=== PATIENT | female | born 1965 | race Caucasian/White ===

== ENCOUNTER 2017-01-07 12:56 | Observation (INO) | payer BC ==
[2017-01-07] MEDS ORDERED: ASPIRIN 81 MG TABLET, CHEWABLE PO ONE (13:31)
--- NOTE | 2017-01-07 13:35 | ER Document Report ---
ED Medical Screen (RME) - General Chief Complaint: Chest Pain Stated Complaint: CHEST PAIN, SHORTNESS OF BREATH Time Seen by Provider: 01/07/17 13:28 Mode of Arrival: Ambulatory Information source: Patient Notes: pt presents with c/o cp midsternal with pain straight across her shoulders. Also reports n/v/d, jaw pain. Sx started Thursday, better Thursday, returned today. Hx of HTN, High chol., + smoker. TRAVEL OUTSIDE OF THE [place] IN LAST 30 DAYS: No - Related Data Allergies/Adverse Reactions: No Known Allergies Allergy (Verified 07/14/14 06:51) Past Medical History - Past Medical History Cardiac Medical History: Denies: Hx Coronary Artery Disease, Hx Heart Attack, Hx Hypertension Pulmonary Medical History: Denies: Hx Asthma, Hx Bronchitis, Hx COPD, Hx Pneumonia Neurological Medical History: Denies: Hx Cerebrovascular Accident, Hx Seizures Renal/ Medical History: Denies: Hx Peritoneal Dialysis Musculoskeltal Medical History: Denies Hx Arthritis Past Surgical History: Denies: Hx Hysterectomy - Immunizations Hx Diphtheria, Pertussis, Tetanus Vaccination: No Physical Exam - Vital signs Vitals: Temp Pulse Resp BP Pulse Ox 98.0 F 98 20 113/73 99 01/07/17 13:14 01/07/17 13:14 01/07/17 13:14 01/07/17 13:14 01/07/17 13:14 Course - Vital Signs Vital signs: Temp Pulse Resp BP Pulse Ox 98.0 F 98 20 113/73 99 01/07/17 13:14 01/07/17 13:14 01/07/17 13:14 01/07/17 13:14 01/07/17 13:14
--- NOTE | 2017-01-07 13:43 | EKG REPORT ---
SEVERITY:- BORDERLINE ECG - SINUS RHYTHM PROBABLE LEFT ATRIAL ABNORMALITY : Confirmed by: Efrain Najera 07-Jan-2017 13:42:41
[2017-01-07 13:57] LABS: ABSOLUTE BASOPHILS # (AUTO) 0.1 10^3/uL (0.0-0.2); ABSOLUTE EOSINOPHILS # (AUTO) 0.2 10^3/uL (0.0-0.6); ABSOLUTE LYMPHOCYTES (AUTO) 3.2 10^3/uL (0.5-4.7); ABSOLUTE MONOCYTES (AUTO) 0.9 10^3/uL (0.1-1.4); ABSOLUTE NEUT (AUTO) 7.4 10^3/uL (1.7-8.2); BASOPHILS % (AUTO) 0.8 % (0-2); EOSINOPHILS % (AUTO) 1.5 % (0-6); HEMATOCRIT 45.7 % (36.0-47.0); HEMOGLOBIN 15.7 g/dL (12.0-15.5); HGB HCT DIFFERENCE 1.4; LYMPHOCYTES % (AUTO) 26.9 % (13-45); MEAN CORPUSCULAR HGB CONC 34.4 g/dL (32.0-36.0); MEAN CORPUSCULAR VOLUME 87 fl (80-97); MONOCYTES % (AUTO) 7.3 % (3-13); RED BLOOD COUNT 5.24 10^6/uL (3.72-5.28); RED CELL DISTRIBUTION WIDTH 13.3 % (11.5-14.0); SEGMENTED NEUTROPHILS % (AUTO) 63.5 % (42-78); WHITE BLOOD COUNT 11.7 10^3/uL (4.0-10.5)
[2017-01-07 14:02] LABS: PROTHROMBIN TIME 12.1 SEC (11.4-15.4)
--- NOTE | 2017-01-07 14:14 | ER Document Report ---
ED General - General Chief Complaint: Chest Pain Stated Complaint: CHEST PAIN, SHORTNESS OF BREATH Time Seen by Provider: 01/07/17 13:28 Mode of Arrival: Ambulatory Information source: Patient Notes: 51-year-old female history of hypertension hypercholesterolemia smoker no previous cardiac history presents with complaints of chest pain. Patient notes it is a pressure sensation midsternal lasting 5-10 minutes on exertion initially started on Thursday resolved on Thursday and return again. Patient notes pain worsens when she walks. Denies any previous similar episodes TRAVEL OUTSIDE OF THE [place] IN LAST 30 DAYS: No - HPI Onset: Other Onset/Duration: Intermittent Quality of pain: Burning, Pressure Severity: Mild Pain Level: 1 Associated symptoms: Chest pain, Nausea, Vomiting Exacerbated by: Walking Relieved by: Denies Similar symptoms previously: No Recently seen / treated by doctor: No - Related Data Allergies/Adverse Reactions: No Known Allergies Allergy (Verified 07/14/14 06:51) Past Medical History - General Information source: Patient - Social History Smoking Status: Current Every Day Smoker Cigarette use (# per day): Yes Chew tobacco use (# tins/day): No Smoking Education Provided: No Family History: CAD Patient has suicidal ideation: No Patient has homicidal ideation: No - Past Medical History Cardiac Medical History: Denies: Hx Coronary Artery Disease, Hx Heart Attack, Hx Hypertension Pulmonary Medical History: Denies: Hx Asthma, Hx Bronchitis, Hx COPD, Hx Pneumonia Neurological Medical History: Denies: Hx Cerebrovascular Accident, Hx Seizures Renal/ Medical History: Denies: Hx Peritoneal Dialysis Musculoskeltal Medical History: Denies Hx Arthritis Past Surgical History: Denies: Hx Hysterectomy - Immunizations Hx Diphtheria, Pertussis, Tetanus Vaccination: No Review of Systems - Review of Systems Notes: PHYSICAL EXAMINATION: GENERAL: Well-appearing, well-nourished and in no acute distress. HEAD: Atraumatic, normocephalic. EYES: Pupils equal round and reactive to light, extraocular movements intact, conjunctiva are normal. ENT: Nares patent, oropharynx clear without exudates. Moist mucous membranes. NECK: Normal range of motion, supple without lymphadenopathy LUNGS: Breath sounds clear to auscultation bilaterally and equal. No wheezes rales or rhonchi. HEART: Regular rate and rhythm without murmurs ABDOMEN: Soft, nontender, nondistended abdomen. No guarding, no rebound. No masses appreciated. Female : deferred Musculoskeletal: Normal range of motion, no pitting or edema. No cyanosis. NEUROLOGICAL: Cranial nerves grossly intact. Normal speech, normal gait. Normal sensory, motor exams PSYCH: Normal mood, normal affect. SKIN: Warm, Dry, normal turgor, no rashes or lesions noted. Physical Exam - Vital signs Vitals: Temp Pulse Resp BP Pulse Ox 98.0 F 98 20 113/73 99 01/07/17 13:14 01/07/17 13:14 01/07/17 13:14 01/07/17 13:14 01/07/17 13:14 Course - Re-evaluation Re-evalutation: 01/07/17 15:32 first set of enzymes are negative, pt is stable at this time. i will admit for acs rules out 01/07/17 15:36 - Vital Signs Vital signs: Temp Pulse Resp BP Pulse Ox 98.0 F 98 20 113/73 99 01/07/17 13:14 01/07/17 13:14 01/07/17 13:14 01/07/17 13:14 01/07/17 13:14 - Laboratory Result Diagrams: 01/07/17 13:40 01/07/17 13:40 Laboratory results interpreted by me: 01/07/17 01/07/17 13:40 13:40 WBC 11.7 H Hgb 15.7 H Sodium 135.0 L Chloride 93 L Carbon Dioxide 31 H Glucose 143 H Direct Bilirubin 0.5 H - Diagnostic Test Radiology reviewed: Image reviewed, Reports reviewed - EKG Interpretation by Ma EKG shows normal: Sinus rhythm, [place], Intervals, QRS Complexes Discharge - Discharge Clinical Impression: Chest pain Qualifiers: Chest pain type: unspecified Qualified Code(s): R07.9 - Chest pain, unspecified Condition: Stable Disposition: ADMITTED OBSERVATION Admitting Provider: Hospitalist Unit Admitted: Telemetry
[2017-01-07 14:17] LABS: ALANINE AMINOTRANSFERASE 51 U/L (9-52); ALBUMIN 4.4 g/dL (3.5-5.0); ALKALINE PHOSPHATASE 101 U/L (38-126); ANION GAP 11 (5-19); ASPARTATE AMINO TRANSFERASE 31 U/L (14-36); BILIRUBIN,DIRECT 0.5 mg/dL (0.0-0.4); BILIRUBIN,TOTAL 0.7 mg/dL (0.2-1.3); BLOOD UREA NITROGEN 15 mg/dL (7-20); CALCIUM 9.8 mg/dL (8.4-10.2); CARBON DIOXIDE 31 mmol/L (22-30); CHLORIDE 93 mmol/L (98-107); CREATINE KINASE 65 U/L (30-135); CREATININE RESULT 0.74 mg/dL (0.52-1.25); GLUCOSE 143 mg/dL (75-110); POTASSIUM 4.2 mmol/L (3.6-5.0); TOTAL PROTEIN 7.4 g/dL (6.3-8.2)
[2017-01-07 14:27] LABS: CREATINE KINASE MB 0.33 ng/mL (<4.55)
[2017-01-07 14:32] LABS: TROPONIN I < 0.012 ng/mL
[2017-01-07] MEDS ORDERED: MORPHINE SULFATE 10 MG/ML INJ IV PRN (16:42)
[2017-01-07] MEDS ORDERED: DIAZEPAM 5 MG TABLET PO PRN ×2 (16:42→16:51)
[2017-01-07] MEDS ORDERED: ONDANSETRON HCL INJ/PF 4 MG/2 ML SDV IV PRN (16:42)
[2017-01-07] MEDS ORDERED: NITROGLYCERIN 0.4 MG/TAB 25 TAB/BOTTLE SL PRN (16:42)
[2017-01-07] MEDS ORDERED: TEMAZEPAM 15 MG CAPSULE PO PRN (16:42)
--- NOTE | 2017-01-07 17:02 | PDOC H&P ---
History of Present Illness Admission Date/PCP: 01/07/17 16:10 History of Present Illness: JOURDAN ERIC is a 51 year old female with a history of hypertension, hyperlipidemia, GERD, diabetes mellitus type II, tobaccoism presents to the emergency department with complaints of chest pain of approximately 3 days in duration. Patient reports that her chest pain was sharp and substernal and lasted for approximately 20 minutes and radiated up into her jaw and her right ear. There was seen with nausea and vomiting. She of the sub-Thursday as well as on Thursday particularly in the evening. Patient reports that her chest pain is worse with exertion and lasts for approximately 20 minutes and will resolve upon resting. She reports associated shortness of breath and dyspnea on exertion. She does report occasional abdominal distention and occasional mild lower extremity swelling but denies any PND or orthopnea. Patient does report significant postnasal drip as well as a cough on laying down. Patient is referred to hospital service for evaluation of her chest pain. Past Medical History Past Medical History: Hypertension, hyperlipidemia, GERD, diabetes mellitus type II Cardiac Medical History: Denies: Coronary Artery Disease, Myocardial Infarction, Hypertension Pulmonary Medical History: Denies: Asthma, Bronchitis, Chronic Obstructive Pulmonary Disease (COPD), Pneumonia Neurological Medical History: Denies: Seizures Musculoskeltal Medical History: Denies: Arthritis Hematology: Denies: Anemia Past Surgical History Past Surgical History: Reports: Cholecystectomy, Tonsillectomy Denies: Hysterectomy Social History Smoking Status: Current Every Day Smoker Cigarettes Packs Per Day: 1 Number of Years Smokin Frequency of Alcohol Use: None Hx Recreational Drug Use: No Hx Prescription Drug Abuse: No - Advance Directive Resuscitation Status: Full Code Surrogate healthcare decision maker:: Cindy Macario, Family History Family History: CAD, CVA Parental Family History Reviewed: Yes Children Family History Reviewed: NA Sibling(s) Family History Reviewed.: NA Medication/Allergy Home Medications: Atorvastatin Calcium [Lipitor 40 mg Tablet] 40 mg PO QHS 01/07/17 Gabapentin [Neurontin 300 mg Capsule] 300 mg PO Q12 01/07/17 Lisinopril/Hydrochlorothiazide [Zestoretic 20-25 mg Tablet] 1 tab PO QHS Melatonin/Pyridoxine HCl (B6) [Melatonin 10 mg Tablet] 10 mg PO QHS 01/07/17 Metformin HCl [Metformin HCl ER] 500 mg PO BID 01/07/17 Allergies/Adverse Reactions: No Known Allergies Allergy (Verified 07/14/14 06:51) Review of Systems Constitutional: PRESENT: fatigue. ABSENT: chills, fever(s), headache(s), weakness, weight gain, weight loss Eyes: ABSENT: visual disturbances Ears: ABSENT: hearing changes Cardiovascular: PRESENT: as per HPI, chest pain, dyspnea on exertion, edema. ABSENT: orthropnea, palpitations Respiratory: ABSENT: cough, hemoptysis Gastrointestinal: PRESENT: heartburn. ABSENT: abdominal pain, constipation, diarrhea, hematemesis, hematochezia, melena, nausea, vomiting Genitourinary: ABSENT: dysuria, hematuria Musculoskeletal: ABSENT: joint swelling Integumentary: ABSENT: rash, wounds Neurological: ABSENT: abnormal gait, abnormal speech, confusion, dizziness, focal weakness, syncope Psychiatric: ABSENT: anxiety, depression, homidical ideation, suicidal ideation Endocrine: ABSENT: cold intolerance, heat intolerance, polydipsia, polyuria Hematologic/Lymphatic: ABSENT: easy bleeding, easy bruising Physical Exam Vital Signs: Temp Pulse Resp BP Pulse Ox 98.0 F 98 11 L 113/73 98 01/07/17 13:14 01/07/17 13:14 01/07/17 16:00 01/07/17 13:14 01/07/17 16:00 General appearance: PRESENT: no acute distress, well-developed, well-nourished Head exam: PRESENT: atraumatic, normocephalic Eye exam: PRESENT: conjunctiva pink, EOMI, PERRLA. ABSENT: scleral icterus Ear exam: PRESENT: normal external ear exam Mouth exam: PRESENT: moist, tongue midline Neck exam: ABSENT: JVD, lymphadenopathy, thyromegaly, tracheal deviation Respiratory exam: PRESENT: clear to auscultation trudy, symmetrical, unlabored. ABSENT: rales, rhonchi, tachypnea, wheezes Cardiovascular exam: PRESENT: RRR, +S1, +S2. ABSENT: clicks, diastolic murmur, gallop, rubs, systolic murmur Pulses: PRESENT: normal dorsalis pedis pul Vascular exam: PRESENT: normal capillary refill GI/Abdominal exam: PRESENT: normal bowel sounds, soft. ABSENT: distended, guarding, mass, Gottlieb's sign, organolmegaly, rebound, tenderness Rectal exam: PRESENT: deferred Extremities exam: PRESENT: full ROM. ABSENT: calf tenderness, clubbing, pedal edema Neurological exam: PRESENT: alert, awake, oriented to person, oriented to place , oriented to time, oriented to situation, CN II-XII grossly intact. ABSENT: motor sensory deficit Psychiatric exam: PRESENT: appropriate affect, normal mood. ABSENT: homicidal ideation, suicidal ideation Skin exam: PRESENT: dry, intact, warm. ABSENT: cyanosis, rash Results Impressions: Chest X-Ray 01/07/17 00:00 IMPRESSION: NO SIGNIFICANT RADIOGRAPHIC FINDING IN THE CHEST. Assessment & Plan - Diagnosis (1) Chest pain Qualifiers: Chest pain type: unspecified Qualified Code(s): R07.9 - Chest pain, unspecified Is this a current diagnosis for this admission?: YesPlan: Place patient on observation for chest pain protocol. Obtain serial cardiac enzymes, morning lipid panel, and hemoglobin A1c. Place patient on nitroglycerin, metoprolol, lisinopril, aspirin, Lipitor, morphine, Lovenox. Will monitor on telemetry. Patient has multiple risk factors and will place for stress test in the morning. 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 She is offered nicotine replacement therapy. Stop smoking! (7) GERD (gastroesophageal reflux disease) Qualifiers: Esophagitis presence: esophagitis presence not specified Qualified Code(s): K21.9 - Gastro-esophageal reflux disease without esophagitis Is this a current diagnosis for this admission?: YesPlan: Place patient on Prevacid twice a day (8) Allergic rhinitis Qualifiers: Allergic rhinitis trigger: unspecified Allergic rhinitis seasonality: unspecified seasonality Qualified Code(s): J30.9 - Allergic rhinitis, unspecified Is this a current diagnosis for this admission?: YesPlan: Initiated patient on Claritin, Singulair, and Flonase - Time Time Spent: 50 to 70 Minutes Medications reviewed and adjusted accordingly: Yes Anticipated discharge: Home Within: within 24 hours - Inpatient Certification Based on my medical assessment, after consideration of the patient's comorbidities, presenting symptoms, or acuity I expect that the services needed warrant INPATIENT care.: No I certify that my determination is in accordance with my understanding of Medicare's requirements for reasonable and necessary INPATIENT services [42 CFR 412.3e].: No Medical Necessity: Need For Continuous Telemetry Monitoring 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
[2017-01-07] MEDS: LANSOPRAZOLE 30 MG TAB.RAP.DR PO SCH (17:03)
[2017-01-07] MEDS: DOCUSATE SODIUM 100 MG CAPSULE PO SCH (17:04)
[2017-01-07 18:24] LABS: TROPONIN I < 0.012 ng/mL
[2017-01-07] MEDS ORDERED: (PENDING PHARMACY ID) (Melatonin/Pyridoxine Hcl (B6) [Melatonin 10 Mg Tablet] 10 MG) PO SCH (22:00)
[2017-01-07] MEDS ORDERED: ATORVASTATIN CALCIUM 40 MG TABLET PO SCH (22:00)
[2017-01-07] MEDS ORDERED: HYDROCHLOROTHIAZIDE 25 MG TABLET PO SCH (22:00)
[2017-01-07] MEDS ORDERED: LISINOPRIL 10 MG TABLET PO SCH (22:00)
[2017-01-07] MEDS ORDERED: MONTELUKAST SODIUM 10 MG TABLET PO SCH (22:00)
[2017-01-07] MEDS ORDERED: (PENDING PHARMACY ID) (Lisinopril/Hydrochlorothiazide [Zestoretic 20-25 Mg Tablet] 1 TAB) PO SCH (22:00)
[2017-01-07] MEDS ORDERED: LORATADINE 10 MG TABLET PO SCH (22:00)
[2017-01-07] MEDS: GABAPENTIN 300 MG CAPSULE PO SCH (23:19)
[2017-01-07] MEDS: ENOXAPARIN SODIUM INJ 80 MG/0.8 ML DISP.SYRIN SUBCUT SCH (23:21)
[2017-01-07] MEDS: FLUTICASONE NASAL SPRAY 50 MCG/SPRY 120 SPRAY/16 GM NASL SCH (23:33)
[2017-01-08 00:23] LABS: CREATINE KINASE MB 0.26 ng/mL (<4.55)
[2017-01-08 00:28] LABS: TROPONIN I < 0.012 ng/mL
[2017-01-08] MEDS: LANSOPRAZOLE 30 MG TAB.RAP.DR PO SCH (05:05)
[2017-01-08 06:43] LABS: CHOLESTEROL 127.17 mg/dL (0-200); Direct HDL 22 mg/dL (>40); TRIGLYCERIDES 227 mg/dL (<150)
[2017-01-08 06:54] LABS: DIRECT LDL 56 mg/dL (<100)
[2017-01-08 06:55] LABS: CREATINE KINASE MB 0.24 ng/mL (<4.55)
[2017-01-08 06:58] LABS: TROPONIN I < 0.012 ng/mL
[2017-01-08 06:59] LABS: VLDL CHOLESTEROL 45.4 mg/dL (10-31)
[2017-01-08] MEDS ORDERED: ASPIRIN 325 MG TABLET, ENT COATED PO SCH (10:00)
[2017-01-08] MEDS ORDERED: REGADENOSON INJ 0.4 MG/5 ML DISP.SYRIN IV ONE (11:39)
[2017-01-08] MEDS: FLUTICASONE NASAL SPRAY 50 MCG/SPRY 120 SPRAY/16 GM NASL SCH (11:42)
[2017-01-08] MEDS: DOCUSATE SODIUM 100 MG CAPSULE PO SCH (11:42)
[2017-01-08] MEDS: GABAPENTIN 300 MG CAPSULE PO SCH (11:42)
[2017-01-08] MEDS: ENOXAPARIN SODIUM INJ 80 MG/0.8 ML DISP.SYRIN SUBCUT SCH (11:43)
[2017-01-08 14:23] VITALS: BP 113/61
--- NOTE | 2017-01-08 15:32 | PDOC DISCHARGE SUMMARY ---
General - Admit/Disc Date/PCP Admission Date/Primary Care Provider: 01/07/17 16:42 Discharge Date: 01/08/17 - Discharge Diagnosis (1) Chest pain Is this a current diagnosis for this admission?: Yes (2) Positive cardiac stress test Is this a current diagnosis for this admission?: Yes (3) Hypertension Is this a current diagnosis for this admission?: Yes (4) Hyperlipidemia Is this a current diagnosis for this admission?: Yes (5) Diabetes mellitus, type II Is this a current diagnosis for this admission?: Yes (6) Tobacco abuse Is this a current diagnosis for this admission?: Yes (7) GERD (gastroesophageal reflux disease) Is this a current diagnosis for this admission?: Yes (8) Allergic rhinitis Is this a current diagnosis for this admission?: Yes - Additional Information Resuscitation Status: Full Code Discharge Diet: Cardiac, Diabetic Discharge Activity: Activity As Tolerated, Slowly Increase Activity Home Medications: Atorvastatin Calcium [Lipitor 40 mg Tablet] 40 mg PO QHS 01/07/17 Gabapentin [Neurontin 300 mg Capsule] 300 mg PO Q12 01/07/17 Lisinopril/Hydrochlorothiazide [Zestoretic 20-25 mg Tablet] 1 tab PO QHS Melatonin/Pyridoxine HCl (B6) [Melatonin 10 mg Tablet] 10 mg PO QHS 01/07/17 Metformin HCl [Metformin HCl ER] 500 mg PO BID 01/07/17 Aspirin [Ecotrin 325 mg EC Tablet] 325 mg PO DAILY #90 tabec 01/08/17 Docusate Sodium [Colace 100 mg Capsule] 100 mg PO BID #60 capsule 01/08/17 Esomeprazole Magnesium [Nexium] 20 mg PO BID #60 capsule.dr 01/08/17 Fluticasone Propionate [Flonase Nasal [place] 50 Mcg/[place] 16 gm] 1 spray NASL Q12 #1 bot 01/08/17 Levocetirizine Dihydrochloride [Xyzal] 5 mg PO DAILY #30 tablet 01/08/17 Montelukast Sodium [Singulair 10 mg Tablet] 10 mg PO QHS #30 tablet 01/08/17 Ranolazine [Ranexa 500 mg Tab.sr] 500 mg PO Q12 #60 tab.sr.12h 01/08/17 History of Present Illness History of Present Illness: JOURDAN ERIC is a 51 year old female with a history of hypertension, hyperlipidemia, GERD, diabetes mellitus type II, tobaccoism presents to the emergency department with complaints of chest pain of approximately 3 days in duration. Patient reports that her chest pain was sharp and substernal and lasted for approximately 20 minutes and radiated up into her jaw and her right ear. There was seen with nausea and vomiting. She of the sub-Thursday as well as on Thursday particularly in the evening. Patient reports that her chest pain is worse with exertion and lasts for approximately 20 minutes and will resolve upon resting. She reports associated shortness of breath and dyspnea on exertion. She does report occasional abdominal distention and occasional mild lower extremity swelling but denies any PND or orthopnea. Patient does report significant postnasal drip as well as a cough on laying down. Patient is referred to hospital service for evaluation of her chest pain. Hospital Course Hospital Course: Patient was placed on observation and ruled out for acute coronary syndrome. Patient was found to have dyslipidemia with a well-controlled LDL, but a poor HDL. Patient was advised to stop smoking for this and to get a moderate amount of exercise after her cardiac catheterization. Patient had a stress test which revealed a small area of apical ischemia that was reversible. This was discussed with patient and her partner and patient was started on Ranexa. Since admission patient has had no further chest pain. Her blood pressure at this time would not tolerate a long-acting nitrate. Patient is advised to take aspirin daily and to follow-up with cardiology as well as her primary care physician within one week. She is also advised to return the nearest emergency department for worsening chest pain or for any other medical concerns. I did offer transferred to this patient for cardiac catheterization, but she declined in favor of outpatient cardiac catheterization. And has been advised longer than 3 minutes to stop smoking. She is discharged currently in stable condition. Physical Exam Vital Signs: Temp Pulse Resp BP Pulse Ox 98.5 F 90 18 98/63 L 95 01/08/17 07:37 01/08/17 07:37 01/08/17 07:37 01/08/17 07:37 01/08/17 07:37 Intake & Output 01/07/17 01/08/17 01/09/17 06:59 06:59 06:59 Intake Total 0 Balance 0 Weight 70.9 kg Exam: General: Awake alert and oriented x3, no acute respiratory distress HEENT: AT/NC, PERRL, EOMI, oropharynx is moist, pink, no scleral icterus, no conjunctival injection Neck: No JVD, trachea midline Chest: Clear to auscultation bilaterally, no wheezes rhonchi or rales CV: Regular rate and rhythm, normal S1 and S2, no murmur, rub, or gallop Abdomen: Soft, nontender to palpation, nondistended, active bowel sounds; no rebound, rigidity, or guarding Extremities: No cyanosis, clubbing or edema Neuro: Cranial nerves II through XII are grossly intact without focal deficits; awake alert and oriented x3 Psych: Normal mood and affect Results Laboratory Results: 01/08/17 06:02 Triglycerides 227 H Cholesterol 127.17 LDL Cholesterol Direct 56 VLDL Cholesterol 45.4 H HDL Cholesterol 22 L 01/07/17 01/07/17 01/07/17 17:40 17:40 23:38 Creatine Kinase 60 CK-MB (CK-2) 0.30 0.26 Troponin I < 0.012 < 0.012 01/08/17 06:02 Creatine Kinase CK-MB (CK-2) 0.24 Troponin I < 0.012 Impressions: Chest X-Ray 01/07/17 00:00 IMPRESSION: NO SIGNIFICANT RADIOGRAPHIC FINDING IN THE CHEST. Qualifiers PATEINT BEING DISCHARGED WITH ANY OF THE FOLLOWING DIAGNOSIS?: No Plan Time Spent: Less than 30 Minutes
--- NOTE | 2017-01-09 21:19 | DRAGON STRESS TEST REPORT ---
Intravenous Lexiscan Cardiolite stress test using single photon emmision computerized tomography. Date of procedure: 01/08/2017 Ordering Provider: Dr. Landon. Patient's status: Inpatient Indication: Chest pain. Coronary risk factors: Age, diabetes mellitus type II [id number], hypertension, dyslipidemia, tobacco abuse disorder, and family history of coronary artery disease. Resting EKG: Sinus Rhythm. No acute changes Stress EKG: No changes of ischemia. The patient had no chest pain or discomfort, and there were no arrhythmias seen Reason for termination: Protocol. Conclusions: Normal EKG response to IV Lexiscan. The patient is asymptomatic drop in blood pressure to 90 /60. But after drinking Pepsi the blood pressure came up to 106/70 Nuclear data: At rest the patient was given 10.07 millicuries of technetium 99m sestamibi injected intravenously. As per protocol rest non gated SPECT images were obtained. Subsequently the patient was given intravenous Lexiscan at a dose of 0.4 mg in 5 mL intravenously, followed by flush with normal saline. Subsequently the stress dose of 32.8 millicuries of technetium 99m sestamibi was injected intravenously. As per protocol stress gated images were obtained. Nuclear interpretation: Review of images showed that there was a small area of mild perfusion defect involving the apical lateral wall in the stress images only. This perfusion defect normalizes in the rest images. The rest of the segments of the myocardium had normal perfusion at rest, and normal perfusion post stress with IV Lexiscan. All segments of the myocardium had normal motion, contraction, and thickening by gated study. T. I D. ratio was read as abnormal at 1.30. Visually this is not reliable, and the T I D ratio is normal Computer read rest, and stress left ventricular ejection fraction were 51 %, and 52 %, respectively. Visually both the stress and rest ejection fractions were normal, and greater than 55%. Conclusion: 1. There is mild scintigraphic evidence of Lexiscan induced myocardial ischemia of a very small area of the apical lateral wall. 2. There is no scintigraphic evidence of myocardial infarction/scar. Recommendations: 1.Maximize medical treatment of coronary artery disease. 2.Aggressive risk factor modification, and treating the underlying co- morbidities. 3. If the patient continues to have chest pain, then would recommend heart catheterization. Results were discussed with the hospitalist taking care of the patient. LITA
== END 2017-01-08 15:30 | disposition home or self-care (01) ==
LOC: ER 12:56 → EH 16:10 → UNDOADMOB 16:10 → EH 16:42 → 4N 20:02
PROVIDERS: ADMIT Internal Medicine; ATTEND Internal Medicine
PROC: HZ31ZZZ Individual Counseling for Substance Abuse Treatment, Behavioral (ICD-10-PCS; principal; 2017-01-07)
DX: R07.89 Other chest pain (principal); R94.39 Abnormal result of other cardiovascular function study; I10 Essential (primary) hypertension; E78.5 Hyperlipidemia, unspecified; E11.9 Type 2 diabetes mellitus without complications; K21.9 Gastro-esophageal reflux disease without esophagitis; J30.9 Allergic rhinitis, unspecified; R11.2 Nausea with vomiting, unspecified; R05 Cough; F17.210 Nicotine dependence, cigarettes, uncomplicated; R06.02 Shortness of breath; R06.00 Dyspnea, unspecified; R60.9 Edema, unspecified; R68.84 Jaw pain; Z79.84 Long term (current) use of oral hypoglycemic drugs; Z79.82 Long term (current) use of aspirin; Z79.899 Other long term (current) drug therapy; Z90.49 Acquired absence of other specified parts of digestive tract; Z82.49 Family history of ischemic heart disease and other diseases of the circulatory system
CPT/HCPCS: 93005; 99285; 36415 ×2; 82553 ×2; 82550; 85025; 85610; 80053; 84484 ×2; 80061; 93017; 71020; 78452; 93010; 99406; A9500; J2785; J3490; J1650; Q9969; G0378

== ENCOUNTER 2017-02-23 10:54 | Emergency (ER) | payer BC, OTHER ==
[2017-02-23 11:16] LABS: ABSOLUTE BASOPHILS # (AUTO) 0.2 10^3/uL (0.0-0.2); ABSOLUTE EOSINOPHILS # (AUTO) 0.3 10^3/uL (0.0-0.6); ABSOLUTE LYMPHOCYTES (AUTO) 3.8 10^3/uL (0.5-4.7); ABSOLUTE MONOCYTES (AUTO) 1.4 10^3/uL (0.1-1.4); ABSOLUTE NEUT (AUTO) 7.7 10^3/uL (1.7-8.2); BASOPHILS % (AUTO) 1.4 % (0-2); EOSINOPHILS % (AUTO) 2.6 % (0-6); HEMATOCRIT 42.9 % (36.0-47.0); HEMOGLOBIN 14.5 g/dL (12.0-15.5); HGB HCT DIFFERENCE 0.6; LYMPHOCYTES % (AUTO) 28.2 % (13-45); MEAN CORPUSCULAR HEMOGLOBIN 30.1 pg (27.0-33.4); MEAN CORPUSCULAR HGB CONC 33.9 g/dL (32.0-36.0); MEAN CORPUSCULAR VOLUME 89 fl (80-97); MONOCYTES % (AUTO) 10.3 % (3-13); RED BLOOD COUNT 4.83 10^6/uL (3.72-5.28); RED CELL DISTRIBUTION WIDTH 13.4 % (11.5-14.0); SEGMENTED NEUTROPHILS % (AUTO) 57.5 % (42-78); WHITE BLOOD COUNT 13.4 10^3/uL (4.0-10.5)
--- NOTE | 2017-02-23 11:21 | RADIOLOGY REPORT (SQ) ---
EXAM DESCRIPTION: CHEST SINGLE VIEW COMPLETED DATE/TIME: 02/23/2017 11:11 am REASON FOR STUDY: bed 16 cp COMPARISON: 01/07/2017 EXAM PARAMETERS: NUMBER OF VIEWS: One view. TECHNIQUE: Single frontal radiographic view of the chest acquired. RADIATION DOSE: NA LIMITATIONS: None. FINDINGS: LUNGS AND PLEURA: No opacities, masses or pneumothorax. No pleural effusion. MEDIASTINUM AND HILAR STRUCTURES: No masses. Contour normal. HEART AND VASCULAR STRUCTURES: Heart normal in size. Normal vasculature. BONES: No acute findings. HARDWARE: None in the chest. OTHER: No other significant finding. IMPRESSION: NO ACUTE RADIOGRAPHIC FINDING IN THE CHEST. TECHNICAL DOCUMENTATION: JOB ID: [id number]
[2017-02-23 11:39] LABS: ALANINE AMINOTRANSFERASE 43 U/L (9-52); ALKALINE PHOSPHATASE 80 U/L (38-126); ANION GAP 13 (5-19); ASPARTATE AMINO TRANSFERASE 32 U/L (14-36); BILIRUBIN,DIRECT 0.3 mg/dL (0.0-0.4); BILIRUBIN,TOTAL 0.6 mg/dL (0.2-1.3); BLOOD UREA NITROGEN 17 mg/dL (7-20); CALCIUM 9.5 mg/dL (8.4-10.2); CARBON DIOXIDE 28 mmol/L (22-30); CHLORIDE 92 mmol/L (98-107); CREATINE KINASE 42 U/L (30-135); CREATININE RESULT 1.11 mg/dL (0.52-1.25); GLUCOSE 103 mg/dL (75-110); POTASSIUM 3.8 mmol/L (3.6-5.0); SODIUM 132.9 mmol/L (137-145); TOTAL PROTEIN 6.9 g/dL (6.3-8.2)
[2017-02-23 11:52] LABS: CREATINE KINASE MB < 0.22 ng/mL (<4.55); TROPONIN I < 0.012 ng/mL
[2017-02-23] MEDS ORDERED: NORMAL SALINE 1000 ML 1,000 ML IV ONE (11:59)
--- NOTE | 2017-02-23 13:33 | ER Document Report ---
ED General - General Chief Complaint: Chest Pain Stated Complaint: CHEST PAIN Time Seen by Provider: 02/23/17 11:47 Notes: Patient says that she has not been feeling well over the weekend. She has been feeling "blah". Also has been having some pain between her shoulder blades and lower abdomen. Says she has vomited several times over the weekend since Thursday. Feeling weak and tired and some shortness of breath. She has been experiencing chest pains for the past 2-3 weeks and was seen here about a month ago and sent to [facility] where she had a stress test followed by a cardiac cath 2 weeks ago. She says that she was told that the cath showed 20% blockage of her coronary arteries. Patient denies any fevers. Denies any UTI symptoms. Patient has reduced her cigarette smoking from 1 pack a day to 5 cigarettes per day. 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 Jackson. She is on Nexium which she takes intermittently. Also has a history of hypertension, NIDDM. Patient denies being under stress or suffering anxiety or depression. TRAVEL OUTSIDE OF THE [place] IN LAST 30 DAYS: No - Related Data Allergies/Adverse Reactions: No Known Allergies Allergy (Verified 07/14/14 06:51) Past Medical History - Social History Smoking Status: Current Some Day Smoker - Says she smokes about 5 cigarettes a day, although she was smoking a pack a day a month ago. Cigarette use (# per day): Yes Chew tobacco use (# tins/day): No Frequency of alcohol use: None Drug Abuse: None Family History: Reviewed & Not Pertinent, CAD, CVA - Past Medical History Cardiac Medical History: Reports: Hx Hypertension Denies: Hx Coronary Artery Disease, Hx Heart Attack Pulmonary Medical History: Denies: Hx Asthma, Hx Bronchitis, Hx COPD, Hx Pneumonia Neurological Medical History: Denies: Hx Cerebrovascular Accident, Hx Seizures Endocrine Medical History: Reports: Hx Diabetes Mellitus Type 2 Musculoskeltal Medical History: Denies Hx Arthritis Past Surgical History: Reports: Hx Cholecystectomy, Hx Tonsillectomy, Hx Tubal Ligation. Denies: Hx Hysterectomy - Immunizations Hx Diphtheria, Pertussis, Tetanus Vaccination: No Review of Systems - Review of Systems Notes: REVIEW OF SYSTEMS: CONSTITUTIONAL : Denies fever. EENT: Denies eye, ear, nose or mouth or throat pain or other symptoms. CARDIOVASCULAR: Denies chest pain. RESPIRATORY: Some cough, chest congestion, or shortness of breath. GASTROINTESTINAL: Denies abdominal pain but has had nausea and vomiting and no diarrhea. GENITOURINARY: Denies difficulty or painful urinating, urinary frequency, blood in urine. MUSCULOSKELETAL: Denies neck pain. Says she is having pain between her shoulder blades. Denies joint pain or swelling. SKIN: Denies rash or skin lesions. NEUROLOGICAL: Denies LOC or altered mental status. Denies headache. Denies sensory loss or motor deficits. ALL OTHER SYSTEMS REVIEWED AND NEGATIVE. Physical Exam - Vital signs Vitals: Pulse Ox 100 02/23/17 10:56 Interpretation: Normal - Notes Notes: PHYSICAL EXAMINATION: GENERAL: Well-appearing, in no acute distress. Vital signs are all essentially normal. HEAD: Atraumatic, normocephalic. NECK: Normal range of motion, supple. LUNGS: Breath sounds clear and equal bilaterally. No wheezes present. HEART: Regular rate and rhythm without murmurs. ABDOMEN: Soft, nontender. No guarding or rebound. BACK: No tenderness throughout entire back. EXTREMITIES: Normal range of motion without pain. NEUROLOGICAL: Normal speech, normal gait. Normal sensory, motor, and reflex exams. Awake, alert, and oriented x3. Cranial nerves normal. PSYCH: Normal mood, normal affect. SKIN: Warm, dry, no rashes. Course - Re-evaluation Re-evalutation: 02/23/17 13:43 With the exception of her white cell count being about 13,000, with no significant shift, patient's labs are all essentially normal. Her chest x-ray is normal. Her EKG is normal. She may have had a viral illness, separate from her prior symptoms of chest pain, over this past weekend. She is no longer feeling nauseated and not vomiting. I am going to give her today and tomorrow off from work and see if her symptoms resolve. I am ordering a urinalysis just to be sure the patient does have a UTI. - Vital Signs Vital signs: Temp Pulse Resp BP Pulse Ox 22 H 108/71 94 02/23/17 13:20 02/23/17 13:20 02/23/17 13:20 - Laboratory Result Diagrams: 02/23/17 11:00 02/23/17 11:00 Laboratory results interpreted by me: 02/23/17 02/23/17 11:00 11:00 WBC 13.4 H Sodium 132.9 L Chloride 92 L Est GFR (Non-Af Amer) 52 L - Diagnostic Test Radiology results interpreted by me: 02/23/17 13:45 Chest x-ray is normal - EKG Interpretation by Me EKG shows normal: Sinus rhythm Rate: Normal Rhythm: NSR Additional EKG results interpreted by me: 02/23/17 13:45 EKG shows some changes suggestive of slight LVH. Otherwise normal. Discharge - Discharge Clinical Impression: Chest pain, non-cardiac Leukocytosis Qualifiers: Leukocytosis type: unspecified Qualified Code(s): D72.829 - Elevated white blood cell count, unspecified Condition: Stable Additional Instructions: CHEST PAIN OF UNCLEAR CAUSE: The exact cause of your chest pain isn't clear. Fortunately, there is no evidence of a dangerous medical condition. Further testing may be required to find the source of the pain. Most often, we find that this pain is coming from the chest wall -- the muscles or rib joints in the chest. But chest pain can come from the lung and lung lining, the esophagus, the heart valves or heart lining, and even the stomach or gallbladder. Rest. Eat lightly until the pain is gone. We may prescribe medicine for pain and inflammation. You should call the physician immediately if the pain radiates to the shoulder, jaw or arms; if you start to run a fever or develop a cough; or if you develop shortness of breath, or other new or alarming symptoms. Leukocytosis Leukocytosis is an elevation or increase in the number of white blood cells. Nearly all leukocytosis is due to one type of white blood cell, the polymorphonuclear leukocyte (PMN). These conditions are more accurately referred to as neutrophilia. The most common and important cause of neutrophilia is infection, and most infections cause neutrophilia. The degree of elevation often indicates the severity of the infection. Tissue damage from other causes raises the white count for similar reasons. Angelo, infarction (cutting off the blood supply to a region of the body so that it dies), crush injuries, inflammatory diseases, poisonings, and severe diseases, like kidney failure and diabetic ketoacidosis, all cause neutrophilia. Counts almost as high occur in leukemoid (leukemia-like) reactions caused by infection and non-infectious inflammation. Drugs can also cause leukocytosis. Cortisone-like drugs prednisone, lithium , and NSAIDs are the most common offenders. Non-specific stresses also cause white blood cells to increase in the blood. Extensive testing of medical students reveals that neutrophilia accompanies every examination. Vigorous exercise and intense excitement also cause elevated white blood cell counts. Other than your slightly elevated white cell count called leukocytosis, you have a NORMAL EXAM AND WORKUP: At this time, your examination and workup show no significant abnormality. No significant abnormal physical findings were noted. All laboratory, EKG, and imaging (x-ray, CT scans, ultrasound) studies that were ordered show no significant abnormality. Although your examination and all studies that were ordered showed no significant abnormal finding, there are no examinations and no studies that are 100% accurate. There is always the possibility that some abnormality could exist and not be detected with physical examination or within the limits and capabilities of laboratory and other studies. You should return or follow up as you were instructed on your visit today for further evaluation if your symptoms do not resolve. CHEST WALL PAIN: Your chest pain may be coming from the chest wall. This is often caused by straining the muscles or joints in the chest during physical activity, direct trauma, coughing, or vigorous vomiting. Persons with arthritis are especially prone to this type of pain, due to inflammation of the cartilage joints near the breast bone. Occasionally, no cause can be found. Rest from strenuous physical activity. This kind of chest pain is usually made worse by movement of the chest. Depending on the symptoms, we may prescribe medicine for pain, muscle relaxation, and antiinflammatory effects. If the pain is new, and seems to be due to muscle strain, cold packs can help. Otherwise, apply gentle warmth to the painful area for 15 minutes every hour or two. You should call contact the doctor immediately if things change. Further evaluation is needed if you develop a fever or cough, if the nature of the pain changes, or if you become short of breath. Your blood pressure was apparently low because of the nitroglycerin medication you were given. ASPIRIN: Aspirin has been shown to have a beneficial effect on blood circulation by reducing the clotting effect of platelets in the blood. These beneficial effects can be achieved by taking just a single baby (81 mg) aspirin a day. It is recommended that any person over the age of forty take a single baby aspirin every day for heart and brain circulation, unless you are allergic to aspirin or have some significant bleeding disorder. It is strongly recommended that people who have proven cardiac or blood circulation disturbances should take a baby aspirin every day. From the description of your recent cardiac cath results, it appears that your catheterization was normal. You most likely have had a viral infection. The physician has diagnosed a viral infection. Viruses not only cause "colds," but can cause many different symptoms including generalized aching, fever, headache, cough, diarrhea, nausea, vomiting, and fatigue. The treatment, for the most part, is simply relief of symptoms. This means that antibiotics are usually not given. Rest, fluids, pain medications and, occasionally, medication for the specific symptoms that are most bothersome will be prescribed. Use good handwashing to avoid passing the virus to others. Shared toys should be cleaned with disinfectant. Clean the toilets, sinks, and counter surfaces in bathrooms. Launder clothing in hot water. Contact the physician if you develop any new or unusual symptoms such as severe headache, stiff neck, high fever, chest pain, productive cough, or shortness of breath. You should be rechecked if you don't see marked improvement within seven to 10 days. FOLLOW-UP CARE: If you have been referred to a physician for follow-up care, call the physician s office for an appointment as you were instructed or within the next two days. If you experience worsening or a significant change in your symptoms, notify the physician immediately or return to the Emergency Department at any time for re-evaluation. Forms: Return to Work
[2017-02-23 14:06] VITALS: BP 100/70
[2017-02-23 14:55] LABS: APPEARANCE,URINE CLEAR; BILIRUBIN,URINE NEGATIVE (NEGATIVE); GLUCOSE, URINE NEGATIVE (NEGATIVE); KETONES,URINE NEGATIVE (NEGATIVE); LEUKOCYTE ESTERASE,URINE TRACE (NEGATIVE); NITRITE,URINE NEGATIVE (NEGATIVE); PROTEIN,URINE NEGATIVE (NEGATIVE); RBC,URINE NONE SEEN /HPF; URINE SPECIFIC GRAVITY 1.007; UROBILINOGEN,URINE NEGATIVE mg/dL (<2.0)
--- NOTE | 2017-02-23 18:54 | EKG REPORT ---
SEVERITY:- ABNORMAL ECG - SINUS RHYTHM CONSIDER LEFT VENTRICULAR HYPERTROPHY BORDERLINE PROLONGED QT INTERVAL : Confirmed by: Efrain Najera 23-Feb-2017 18:53:45
== END 2017-02-23 14:07 | disposition home or self-care (01) ==
LOC: ER 10:54
DX: R07.89 Other chest pain (principal); D72.829 Elevated white blood cell count, unspecified; M54.89 Other dorsalgia; R11.2 Nausea with vomiting, unspecified; R06.02 Shortness of breath; R53.83 Other fatigue; F17.210 Nicotine dependence, cigarettes, uncomplicated; K21.9 Gastro-esophageal reflux disease without esophagitis; I10 Essential (primary) hypertension; E11.9 Type 2 diabetes mellitus without complications; Z82.49 Family history of ischemic heart disease and other diseases of the circulatory system
CPT/HCPCS: 93005; 99285; 96360; 36415; 82553; 80307; 82550; 85025; 80053; 81001; 84484; 71010; 93010; J7030